=== PATIENT | male | born 1965 | race Caucasian/White ===

== ENCOUNTER → 2023-04-09 | Day surgery (SDC) | payer OTHER ==
[~2023-04-09] VITALS: Ht 170.1 cm; Wt 68.9 kg
[~2023-04-09] MED LIST: ADV 500/50 INH; ARAVA20 MG PO; ENBREL25 MG/0.2 SQ; LISINOPRIL10 M1 PO; MEDROL DOSEPAK4 MG PO; MELOXICAM15 MG PO; VENT7GM INH; ZITHROMAX Z PA250 MG PO
[2023-04-09 09:05] VITALS: BP 143/65
[2023-04-09 10:35] VITALS: BP 121/68
[2023-04-09 10:50] VITALS: BP 129/77
[2023-04-09 11:03] VITALS: BP 139/69
[2023-04-10 12:07] LABS: ACID FAST SPEC PROCESSING Concentration (.)
[2023-04-10 12:07] LABS: ACID FAST SPEC PROCESSING Concentration (.)
== END ==
LOC: SDC 04-07 08:00
PROVIDERS: ATTEND Internal Medicine Critical Care Medicine
DX: R91.8 Other nonspecific abnormal finding of lung field (principal); M06.9 Rheumatoid arthritis, unspecified; I10 Essential (primary) hypertension; J44.9 Chronic obstructive pulmonary disease, unspecified; Z87.891 Personal history of nicotine dependence; Z98.818 Other dental procedure status; Z98.890 Other specified postprocedural states